=== PATIENT | male | born 2000 | race African-American/Black ===

== ENCOUNTER 2021-04-23 08:54 | Emergency (ER) | payer SELFPAY ==
[2021-04-23 09:08] VITALS: BP 135/65; PULSE 85; TEMP 98.1; BMI 29.0
[2021-04-23] MEDS ORDERED: IBUPROFEN 400 MG TABLET (FP) PO ONE (10:20)
[2021-04-23] MEDS ORDERED: LORATADINE 10 MG TABLET PO ONE (10:21)
[2021-04-23] MEDS ORDERED: IBUPROFEN 600 MG TABLET (FP) PO ONE (10:30)
== END 2021-04-23 10:36 | disposition home or self-care (01) ==
LOC: JERFT 08:54
DX: R09.82 Postnasal drip (principal); R51.9 Headache, unspecified; Z11.52 Encounter for screening for COVID-19
CPT/HCPCS: 99283-25; C9803; U0003; U0005

== ENCOUNTER 2023-07-16 20:32 | Emergency (ER) | payer SELFPAY ==
[2023-07-16 20:40] VITALS: BP 118/60; PULSE 73; RESP 18; TEMP 97.7; BMI 27.7
[2023-07-16] MEDS ORDERED: ACETAMINOPHEN 1000 MG/100 ML BAG IVPB ONE (22:21)
[2023-07-16] MEDS ORDERED: SODIUM CHLORIDE 0.9% 500 ML INFUS.BAG IV ONE (22:21)
[2023-07-16] MEDS ORDERED: HALOPERIDOL LACTATE 5 MG/ML IM ONE (22:22)
[2023-07-16] MEDS ORDERED: MAG HYDROX/AL HYDROX/SIMETH 30 ML UNIT-DOSE CUP PO ONE (22:22)
[2023-07-16] MEDS ORDERED: FAMOTIDINE 20 MG/50 ML IVPB 20 MG/50 ML MG IVPB ONE (22:22)
[2023-07-16] MEDS ORDERED: ONDANSETRON *ODT* 4 MG TABLET SL ONE (22:29)
[2023-07-16] MEDS ORDERED: ONDANSETRON *ODT* 4 MG TABLET ONE (22:43)
== END 2023-07-16 22:48 | disposition left against medical advice (07) ==
LOC: JER 20:32
PROC: 3E033GC Introduction of Other Therapeutic Substance into Peripheral Vein, Percutaneous Approach (ICD-10-PCS; principal; 2023-07-16)
PROC: 3E033GC Introduction of Other Therapeutic Substance into Peripheral Vein, Percutaneous Approach (ICD-10-PCS; 2023-07-16)
DX: R10.9 Unspecified abdominal pain (principal); R11.2 Nausea with vomiting, unspecified
CPT/HCPCS: 99284-25; Q0162

== ENCOUNTER 2023-08-04 13:20 | Emergency (ER) | payer SELFPAY ==
[2023-08-04 13:33] VITALS: BP 126/72; PULSE 86; RESP 19; TEMP 98.5; BMI 25.0
[2023-08-04] MEDS ORDERED: IBUPROFEN 400 MG TABLET (FP) PO ONE ×2 (13:57→14:25)
== END 2023-08-04 15:48 | disposition home or self-care (01) ==
LOC: JERFT 13:20
DX: R05.9 Cough, unspecified (principal); R09.81 Nasal congestion; J02.9 Acute pharyngitis, unspecified; R07.89 Other chest pain; J10.1 Influenza due to other identified influenza virus with other respiratory manifestations; Z20.822 Contact with and (suspected) exposure to COVID-19
CPT/HCPCS: 0241U-QW; 99283-25